=== PATIENT | male | born 1980 | race Caucasian/White ===

== ENCOUNTER 2016-11-05 07:09 | Emergency (ER) | payer OTHER ==
[~2016-11-05] VITALS: Ht 167.6 cm; Wt 74.8 kg
[2016-11-05] MEDS ORDERED: BACITRACIN OINTMENT 0.9 GM PACKET TOP ONE (07:30)
[2016-11-05] MEDS ORDERED: LIDOCAINE 1% (XYLOCAINE) 20 ML VIAL INJ ONE (07:30)
[2016-11-05 08:11] VITALS: BP 122/81
== END 2016-11-05 08:12 | disposition home or self-care (01) ==
LOC: EDUNIT# 07:09 → ED 07:14
DX: S61.011A Laceration without foreign body of right thumb without damage to nail, initial encounter (principal); W31.9XXA Contact with unspecified machinery, initial encounter; Y93.89 Activity, other specified; Y92.63 Factory as the place of occurrence of the external cause; Y99.0 Civilian activity done for income or pay
CPT/HCPCS: 12001; 99282; 99283